=== PATIENT | female | born 2005 | race Caucasian/White ===

== ENCOUNTER 2023-06-01 12:09 | Emergency (ER) | payer OTHER, SELFPAY ==
[2023-06-01 12:28] VITALS: BP 138/84; PULSE 140; RESP 18; TEMP 38.8; O2SAT 100
--- NOTE | 2023-06-01 12:34 | ED.URI ---
HPI - URI/Sore Throat General Chief Complaint: Ear Stated Complaint: Sinus/Sore Throat Source: patient, RN notes reviewed and old records reviewed Mode of arrival: ambulatory Limitations: no limitations History of Present Illness HPI Narrative: 17 year old female accompanied by mother presents to express care with complaints of sore throat, sinus congestion and drainage, hoarseness, headaches, body aches, fevers, chills since yesterday. Patient reports that her left ear started bothering her this morning. Patient has taken Excedrin and NyQuil for her symptoms. Patient has not taken any OTC medications this morning and has 38.8C fever at time of triage. Patient reports that she has had COVID vaccinations and also flu shot this season. MD elicited complaint: fever, sore throat, rhinorrhea, nasal congestion and other (left ear pain, headache) Pertinent past history: other (tonsillectomy) Onset (ago): day(s) (day 2 of symptoms) Severity: moderate Description of mucous: clear Able to tolerate fluids by mouth: Yes Treatments prior to arrival: other (Excedrin, cough drops, and NyQuil) Related Data Home Medications Medication Instructions Recorded Confirmed norgestimate 0.25 mg-ethinyl 1 tablet PO DAILY 06/01/23 06/01/23 estradiol 35 mcg tablet (Sprintec (28)) Allergies Allergy/AdvReac Type Severity Reaction Status Date / Time No Known Allergies Allergy Verified 06/01/23 12:09 Review of Systems Review of Systems: CONSTITUTIONAL: Reports malaise, chills, sweats, or fever. EYES: Denies visual changes, redness, or discharge. ENT: Reports rhinorrhea, congestion, no sinus pain, left otalgia and positive for sore throat. CARDIOVASCULAR: Denies chest pain, palpitations, or edema. RESPIRATORY: Reports no acute cough.? Denies dyspnea. GASTROINTESTINAL: Denies abdominal pain, nausea, vomiting, diarrhea SKIN: Denies rash or itching. MUSCULOSKELETAL: Reports myalgia. NEUROLOGIC: Reports headache. All systems reviewed & are unremarkable except as noted in HPI and below PMFSH Surgical History Surgical History (Updated 06/01/23 @ 12:39 by Carmen Aldrich NP) History of tonsillectomy Social History Social History (Updated 06/01/23 @ 12:49 by Carmen Aldrich NP) Smoking status: Never smoker Alcohol intake: never Substance use: never Living arrangements: with family Gender identity (if verbalized by the patient): Female Comments At time of signature, agree with nursing past medical, surgical, social and family history. There is no relevant family history pertinent to the presenting complaint Exam Narrative: GENERAL: Well-appearing, well-nourished, and in no acute distress. HEAD: Normocephalic EYES: PERRLA, conjunctivae clear ENT: Nares clear, turbinates edematous and erythematous, clear discharge, sinus pressure and headache. Mucous membranes moist.Left TM red, Right TM pearly langston with dull light reflex; no tragal tenderness. Oropharynx erythematous without lesions. Tonsils not present and throat without exudate, no drooling, no hoarseness, no trismus, uvula midline. NECK: Supple. No lymphadenopathy CHEST: Clear to auscultation, breath sounds equal. No wheezing, rhonchi, rales, or stridor. No respiratory distress, speaks in full sentences.SAO2 100% on room air HEART: Regular rate and rhythm. No murmur heard. SKIN: Warm, dry, no rash. NEURO: Alert and oriented x3. PSYCH: Normal mood and affect Course Course Emergency Course: Patient is aware of diagnosis, understands and agrees to treatment plan.? Anticipatory guidance given.? Patient agrees to follow-up as directed and is aware of reasons to seek care at the emergency department. Portions of this record may have been created with voice recognition software Level of Care: Express Care Visit Vital Signs Vital signs: Vital Signs Temperature 38.8 C H 06/01/23 12:28 Pulse Rate 140 H 06/01/23 12:28 Respirat
== END 2023-06-01 13:00 | disposition home or self-care (01) ==
PROVIDERS: Emergency Provider Registered Nurse; PCP Pediatrics
DX: H66.92 Otitis media, unspecified, left ear (principal); J02.9 Acute pharyngitis, unspecified; Z20.822 Contact with and (suspected) exposure to COVID-19
CPT/HCPCS: 87081; 87426; 87804; 87880; 99213; G0463

== ENCOUNTER 2023-09-21 15:33 | Emergency (ER) | payer OTHER, SELFPAY ==
--- NOTE | 2023-09-21 15:39 | ED.URI ---
HPI - URI/Sore Throat General Chief Complaint: Upper Respiratory Infection Stated Complaint: Sore Throat Time Seen by Provider: 09/21/23 15:48 History of Present Illness HPI Narrative: 18-year-old female presented for complaint of sore throat, onset 2 days. Endorses foul-smelling breath, Headache, body aches, and feeling hot/ cold flashes. reports 1 episode of vomiting phlegm today. History tonsillectomy and states she has had strep throat once since then. denies shortness of breath, wheezing, nausea, vomiting or diarrhea. Related Data Home Medications Medication Instructions Recorded Confirmed norgestimate 0.25 mg-ethinyl 1 tablet PO DAILY 06/01/23 09/21/23 estradiol 35 mcg tablet (Sprintec (28)) Allergies Allergy/AdvReac Type Severity Reaction Status Date / Time No Known Allergies Allergy Verified 09/21/23 15:34 Review of Systems Review of Systems: CONSTITUTIONAL: reports body aches, fever, chills, sweats. EYES: Denies visual changes, redness, or discharge. ENT: Reports sore throat Denies rhinorrhea, congestion, or otalgia. CARDIOVASCULAR: Denies chest pain, palpitations, or edema. RESPIRATORY: Denies dyspnea. GASTROINTESTINAL: Denies abdominal pain, nausea, or diarrhea. SKIN: Denies rash, itching, or wounds. MUSCULOSKELETAL: Denies back pain, joint pain NEUROLOGIC: reports headache PMFSH Surgical History Surgical History History of tonsillectomy Social History Social History Smoking status: Never smoker Alcohol intake: never Substance use: never Living arrangements: with family Gender identity (if verbalized by the patient): Female Exam Narrative: GENERAL: mildly Ill-appearing, no acute distress. EYES: conjunctivae clear ENT: Mucous membranes moist. TMs pearly langston with normal light reflex bilaterally; no tragal tenderness. Oropharynx erythematous without lesions. Tonsils absent. No drooling, no hoarseness, no trismus, uvula midline. No tripod positioning, hot potato voice, or soft palate swelling. NECK: Supple. No lymphadenopathy CHEST: Clear to auscultation, breath sounds equal. No respiratory distress, speaks in full sentences. HEART: Regular rate and rhythm. No murmur heard. SKIN: Warm, dry, no rash. NEURO: Alert and oriented x3. Course Course Emergency Course: Patient is aware of diagnosis, understands and agrees to treatment plan. Anticipatory guidance given. Patient agrees to follow-up as directed and is aware of reasons to seek care at the emergency department. Portions of this record may have been created with voice recognition software Level of Care: Express Care Visit Vital Signs Vital signs: Vital Signs Temperature 97 F L 09/21/23 15:45 Pulse Rate 115 H 09/21/23 15:45 Respiratory Rate 16 09/21/23 15:45 Blood Pressure 130/86 09/21/23 15:45 Pulse Oximetry 100 09/21/23 15:45 Oxygen Delivery Room Air 09/21/23 15:45 Temperature 97 F L 09/21/23 15:45 Pulse Rate 115 H 09/21/23 15:45 Respiratory Rate 16 09/21/23 15:45 Blood Pressure 130/86 09/21/23 15:45 Pulse Oximetry 100 09/21/23 15:45 Oxygen Delivery Room Air 09/21/23 15:45 MDM - URI/Sore Throat MDM Narrative Medical decision making narrative: negative strep and covid result reviewed with pt. Advise supportive treatments. Patient is appropriate for outpatient treatment and follow-up. Differential Diagnosis Differential diagnosis: Likely upper respiratory infection, viral infection and pharyngitis Lab Data Labs: Lab Results 09/21/23 09/21/23 Range/Units 15:45 15:58 POC SARS CoV-2 Ag Negative (Negative) POC Grp A Strep Screen Presumptive negative Gp A Beta Strep Culture Yes Grp A Strep Int Pos QC Yes Discharge Plan Discharge Clinical Impression: Pharyngitis Patient Disposition: Home
[2023-09-21 15:45] VITALS: BP 130/86; PULSE 115; RESP 16; TEMP 36.1; O2SAT 100
[2023-09-21 15:57] LABS: EDSTREPNEGPOS1 Presumptive Negative
== END 2023-09-21 16:25 | disposition home or self-care (01) ==
PROVIDERS: Emergency Provider Nurse Practitioner Family; PCP Pediatrics
DX: J02.9 Acute pharyngitis, unspecified (principal); Z20.822 Contact with and (suspected) exposure to COVID-19
CPT/HCPCS: 87081; 87426; 87880; 99213; G0463